=== PATIENT | female | born 1945 | race Caucasian/White ===

== ENCOUNTER 2018-09-13 09:46 | Day surgery (SDC) | payer MEDICARE, MEDICAID ==
[2018-09-13] VITALS (12 sets, daily range): BP systolic 107–132; BP diastolic 50–88; PULSE 49–86; TEMP 97.8–97.9
[~2018-09-13] VITALS: Ht 160 cm; Wt 71.0 kg
[2018-09-13 10:17] LABS: HEMATOCRIT 44.8 % (37.0-47.0); HEMOGLOBIN 14.7 g/dl (12.5-16.0); MEAN CELL VOLUME 89 fl (80.0-100.0); MEAN CORPUSCULAR HEMOGLOBIN 29 pg (27.0-31.0); MEAN CORPUSCULAR HGB CONC 33 g/dl (33.0-37.0); MEAN PLATELET VOLUME 12.5 fl (7.4-10.4); PLATELET COUNT 124 K/mm3 (130-400); RED BLOOD COUNT 5.03 M/mm3 (4.10-5.30); REDCELL DISTRIBUTION WIDTH-CV 13.7 % (11.5-14.5)
[2018-09-13] MEDS ORDERED: LASIX 40MG TABL40 MG PO (10:22)
[2018-09-13] MEDS ORDERED: LEVOXYL0.1 MG PO (10:22)
[2018-09-13 10:23] LABS: CALCIUM 10.5 mg/dL (8.4-10.2); CREATININE, serum 0.87 (0.52-1.25); POTASSIUM 4.3 mmol/L (3.4-5.0)
[2018-09-13] MEDS ORDERED: CELEBREX 200MG200 MG PO (10:23)
[2018-09-13] MEDS ORDERED: BUSPAR5 MG PO (10:24)
[2018-09-13 10:25] LABS: INR 0.9 (0.8-3.0)
[2018-09-13] MEDS ORDERED: HCTZ12.5TAB PO (10:25)
[2018-09-13] MEDS ORDERED: LIPITOR20 MG PO (10:25)
[2018-09-13] MEDS ORDERED: CYMBALTA 60MG60 MG PO (10:26)
[2018-09-13] MEDS ORDERED: CARAFATE 1GM1 G PO (10:27)
[2018-09-13] MEDS ORDERED: BETAPACE 80MG80 MG PO (10:27)
[2018-09-13] MEDS ORDERED: DIGITEK0.125 MG PO (10:28)
[2018-09-13] MEDS ORDERED: MAG-OX 400400 MG/TAB PO (10:28)
[2018-09-13] MEDS ORDERED: FERROUS SU325 MG/TAB PO (10:29)
[2018-09-13] MEDS ORDERED: ZEBETA 5MG5 MG PO (10:30)
[2018-09-13] MEDS ORDERED: ZANAFLEX CAPSULE2 MG PO (10:32)
[2018-09-13] MEDS ORDERED: ASPIRIN E.C. 8181 MG PO (10:33)
[2018-09-13] MEDS ORDERED: LEVEMIR FLEX100 U/ML SQ (10:35)
[2018-09-13] MEDS ORDERED: HUMALOG100 U/ML SQ (10:40)
[2018-09-13] MEDS ORDERED: PROAIR HFA0.09 MG/AC IH (10:40)
[2018-09-13] MEDS ORDERED: VITAMIN C500 MG PO (10:41)
[2018-09-13] MEDS ORDERED: PREDNISONE20 MG PO (12:14)
[2018-09-13] MEDS ORDERED: PEPCID 20MG TAB20 MG PO (12:14)
[2018-09-13] MEDS ORDERED: BENADRYL50 MG PO (12:15)
== END 2018-09-13 17:07 | disposition home or self-care (01) ==
LOC: COL.CAR 09:46
PROVIDERS: Internal Medicine Cardiovascular Disease
DX: R94.39 Abnormal result of other cardiovascular function study (principal); I42.8 Other cardiomyopathies; I10 Essential (primary) hypertension; E78.00 Pure hypercholesterolemia, unspecified; I47.2 Ventricular tachycardia; Z79.4 Long term (current) use of insulin; Z79.82 Long term (current) use of aspirin; Z88.3 Allergy status to other anti-infective agents; Z88.8 Allergy status to other drugs, medicaments and biological substances; Z88.1 Allergy status to other antibiotic agents; F17.210 Nicotine dependence, cigarettes, uncomplicated; Z91.048 Other nonmedicinal substance allergy status
CPT/HCPCS: C1760; C1769; C1894; J1200; J2250; J2930; J3010; J7030; Q9967

== ENCOUNTER 2018-11-12 05:13 | Inpatient (IN) | payer MEDICARE, MEDICAID ==
[~2018-11-12] VITALS: Ht 160 cm; Wt 71.0 kg
[2018-11-12] VITALS (14 sets, daily range): BP systolic 92–141; BP diastolic 37–563; PULSE 50–95; TEMP 97.7–98.5
[~2018-11-12 05:13] MED LIST: ASPIRIN E.C. 8181 MG PO; BENADRYL50 MG PO; BETAPACE 80MG80 MG PO; BUSPAR5 MG PO; CARAFATE 1GM1 G PO; CELEBREX 200MG200 MG PO; CYMBALTA 60MG60 MG PO; DIGITEK0.125 MG PO; FERROUS SU325 MG/TAB PO; HCTZ12.5TAB PO; HUMALOG100 U/ML SQ; LASIX 40MG TABL40 MG PO; LEVEMIR FLEX100 U/ML SQ; LEVOXYL0.1 MG PO; LIPITOR20 MG PO; MAG-OX 400400 MG/TAB PO; PEPCID 20MG TAB20 MG PO; PREDNISONE20 MG PO; PROAIR HFA0.09 MG/AC IH; VITAMIN C500 MG PO; ZANAFLEX CAPSULE2 MG PO; ZEBETA 5MG5 MG PO
--- NOTE | 2018-11-12 06:20 | NUR ---
arrived per to room 330 at 0520, prepped for surgery without incident, medication reconciliation completed with a list provided by patient and by looking at her medication bottles she brought from home, did not take any medications this am, spoke with Pollo Kim CRNA and order obtained to given bisoprolol,
--- NOTE | 2018-11-12 09:25 | NUR ---
returned to room from PACU per bed, awake and alert, IV infusing and placed on pump at 100ml/hr, O2 on at 2L/nC and O2 sat 99%, has tingling sensation to bilateral feet but is unable to move lower extremites, shane wrap dressing to left knee CD&I, ice in place, full assessment completed, see interventions for further info, pedal pulses dificult to palpate but positive with doppler, provided water and denies needs
--- NOTE | 2018-11-12 09:55 | NUR ---
spoke with Caro BOWENS and will notify Dr Poole regarding her sotolol
--- NOTE | 2018-11-12 10:00 | NUR ---
left foot warm and pink, pedal pulse postive with doppler, has taken water and tolerated well, provided coffee per her request
--- NOTE | 2018-11-12 10:15 | NUR ---
drinking coffee and tolerates well, is now beginning to be able to move toes bilaterally
--- NOTE | 2018-11-12 10:35 | NUR ---
Initial visit; Patient thanked Outpatient Physical Therapist Assistant for looking in on her and offering encouragement and God's blessings. Outpatient Physical Therapist Assistant will keep Paige in her prayers.
--- NOTE | 2018-11-12 10:45 | NUR ---
had coffee and tolerated well, instructed on ordering regular food, verbalizes understanding
--- NOTE | 2018-11-12 11:14 | NUR ---
spoke with Dr Poole regarding patient's home meds, he will be in to see her
--- NOTE | 2018-11-12 12:08 | NUR ---
sitting up in bed eating lunch
--- NOTE | 2018-11-12 12:21 | NUR ---
left foot remains warm and pink,
--- NOTE | 2018-11-12 13:00 | NUR ---
resting in bed, staff in to interrogate pacemaker
--- NOTE | 2018-11-12 13:15 | NUR ---
assisted up to bathroom and voided qs, then back to bed, c/o pain to left knee although she ambulated with steady gait with minimal c/os, medicated with roxicodone 5mg and scheduled tylenol 1000mg
--- NOTE | 2018-11-12 13:44 | NUR ---
[employer] rep in to work again check on pacemaker
--- NOTE | 2018-11-12 14:58 | NUR ---
continues to c/o pain to left knee, medicated with second roxicodone 5mg, manager social media in visitiing with patient
--- NOTE | 2018-11-12 15:10 | NUR ---
DANIEL met with the patient and patient's life partner of nine months, Viral Martinez (ph#[phone]), to discuss discharge plan. The patient lives in [place] with Viral. She states that she has three children that live in [place], but that she is not close or in contact with them. She reports independence with ADLs and has a cane, walker, and wheelchair. The patient's primary care provider is CLARE Brewer at [facility] and she receives her medications at [facility]. She reports no difficulties obtaining her meds. The patient was interested in completing a DPOA-HC. DANIEL provided form. The patient designated her life partner, Viral Martinez. DANIEL and the patient's RN, Kimberly, witnessed the patient's signature. The patient was provided with the original and some copies. A copy was placed in the patient's chart. The patient plans to return home with her life partner and receive outpatient PT at [facility] upon discharge. The patient states that she does not have an appointment scheduled there yet. DANIEL contacted Emily at [facility] and secured the patient an appointment for outpatient PT on Sunday, 11/19, at 1125. DANIEL informed the patient's RN and the patient of appointment. The patient was in agreeance to the appointment. No other identified needs at this time.
--- NOTE | 2018-11-12 15:45 | NUR ---
Maria Elena Bond, KERRI in to see patient
--- NOTE | 2018-11-12 16:12 | NUR ---
lying on left side and appears to be dozing, eyes closed, resp quiet and easy
--- NOTE | 2018-11-12 17:03 | NUR ---
sitting up in bed eating Dr Virgilio fisher in to see patient
--- NOTE | 2018-11-12 18:53 | NUR ---
bedside shift report given to Joe Sweeney
--- NOTE | 2018-11-12 19:39 | NUR ---
Pt resting in bed. Family at bedside. No distress noted. Pt rating pain in L knee and hip 10/10. PRN pain medication given. Respirations even and unlabored. Lungs clear to auscultation. Abdomen soft, nontender. BS+. Pedal pulses audbile via doppler. Dressing to L knee clean dry and intact. LLE elevated. Pt denies further needs. Will continue to monitor.
--- NOTE | 2018-11-12 21:30 | NUR ---
Pt had an episode of emesis after getting back to bed after ambulating in the halls. PRN Phenergan given.
[2018-11-13 04:57] VITALS: BP 123/55; PULSE 96; TEMP 98.6
--- NOTE | 2018-11-13 06:27 | NUR ---
Pt resting this AM. She was up x1 in halls ambulating with nausea/emesis after getting back in bed. Pain well controlled with PRN Roxicodone.
--- NOTE | 2018-11-13 06:30 | NUR ---
appears to be sleeping, bedside shift report received from LOU Sweeney
[2018-11-13 07:05] LABS: HEMOGLOBIN 12.4 g/dl (12.5-16.0)
--- NOTE | 2018-11-13 07:15 | NUR ---
assisted up to bathroom and now back in bed, has ordered breakfast, full assessment completed, see interventions for further info
[2018-11-13 08:25] VITALS: BP 135/62; PULSE 81; TEMP 98.8
--- NOTE | 2018-11-13 08:32 | NUR ---
appears to be dozing, states she is just very sleepy today, am meds given
--- NOTE | 2018-11-13 09:40 | NUR ---
physical therapy was in and worked with patient, sitting up in chair dozing at intervals
--- NOTE | 2018-11-13 10:30 | NUR ---
up to bathroom and voided qs, then assisted back to bed
--- NOTE | 2018-11-13 11:00 | NUR ---
in bed and appears to be sleeping, lying on side with eyes closed, resp quiet and easy
[2018-11-13 12:10] VITALS: BP 138/56; PULSE 61; TEMP 98.9
--- NOTE | 2018-11-13 12:14 | NUR ---
awakened and encouraged to order lunch,
--- NOTE | 2018-11-13 12:53 | NUR ---
First visit from the steak tenderizer machine. No needs right now.
--- NOTE | 2018-11-13 13:30 | NUR ---
assisted up to bathroom and then out of room and into recliner, encouraged her to sit up in the chair for a while
--- NOTE | 2018-11-13 15:00 | NUR ---
appears to be sleeping, in chair with eyes closed resp quiet and easy
[2018-11-13 16:25] VITALS: BP 114/57; PULSE 60; TEMP 98.2
--- NOTE | 2018-11-13 18:29 | NUR ---
had supper and tolerated well, assisted up to bathroom and then back to bed
--- NOTE | 2018-11-13 18:49 | NUR ---
bedside shift report given to LOU Lara
[2018-11-13 21:00] VITALS: BP 122/48; PULSE 61; TEMP 98.3
[2018-11-13] MEDS ORDERED: ROXICODONE 55 MG/TAB PO (22:42)
[2018-11-13] MEDS ORDERED: TYLENOL 500MG500 MG PO (22:42)
[2018-11-14 00:02] VITALS: BP 128/53; PULSE 60; TEMP 98.4
[2018-11-14 04:31] VITALS: BP 118/49; BP 118/749; PULSE 60; TEMP 97.9
[2018-11-14 06:47] LABS: HEMOGLOBIN 11.6 g/dl (12.5-16.0)
[2018-11-14 06:57] LABS: HEMATOCRIT 36.1 % (37.0-47.0)
--- NOTE | 2018-11-14 07:09 | NUR ---
REPORT FROM FRANDY BLAKE.
--- NOTE | 2018-11-14 09:44 | NUR ---
PT WORKED WITH THERAPY. DISCHARGE ORDERS RECIEVED. PT TO DISCHARGE HOME AROUND 1100. DRESSING CDI WITH AQUACEL INPLACE.
[2018-11-14 10:03] VITALS: BP 119/59; PULSE 71; TEMP 97.6
--- NOTE | 2018-11-14 11:02 | NUR ---
DISCHARGE INSTRUCTIONS REVIEWED WITH PT AND FAMILY, QUESTIONS SOLICITED AND ANSWERED. DRESSING CHANGE COMPLETE WITH NEW AQUCEL PLACED AND TO REMAIN FOR 7 DAYS. INT DISCONTINUED. PT TOLERATED WELL. PT TAKEN TO FRONT IN WHEEL CHAIR.
== END 2018-11-14 11:05 | disposition home or self-care (01) | DRG 470 ==
LOC: JCC 05:13
PROVIDERS: Physician Assistant; ADMIT Orthopaedic Surgery
PROC: 0SRD0J9 Replacement of Left Knee Joint with Synthetic Substitute, Cemented, Open Approach (ICD-10-PCS; principal; 2018-11-12 07:30)
DX: M17.12 Unilateral primary osteoarthritis, left knee (principal); I42.9 Cardiomyopathy, unspecified; Z95.810 Presence of automatic (implantable) cardiac defibrillator; E78.00 Pure hypercholesterolemia, unspecified; I44.7 Left bundle-branch block, unspecified; J44.9 Chronic obstructive pulmonary disease, unspecified; E03.9 Hypothyroidism, unspecified; R12 Heartburn; E11.40 Type 2 diabetes mellitus with diabetic neuropathy, unspecified; M79.7 Fibromyalgia; I11.0 Hypertensive heart disease with heart failure; I50.9 Heart failure, unspecified; Z79.4 Long term (current) use of insulin; Z79.890 Hormone replacement therapy; Z79.82 Long term (current) use of aspirin; Z82.49 Family history of ischemic heart disease and other diseases of the circulatory system
CPT/HCPCS: A9284; C1776; J0690; J1815; J2250; J2370; J2550; J2704; J3010; J3370; J7030